=== PATIENT | female | born 1950 | race Caucasian/White ===

== ENCOUNTER 2016-07-18 16:34 | Outpatient (CLI) ==
--- NOTE | 2016-07-18 17:08 | DI ---
EXAM: Chest two views HISTORY: Smoker COMPARISON: 04/18/2010 TECHNIQUE: Two views of the chest were performed FINDINGS: The lungs are clear. There is no pleural effusion or pneumothorax. The heart is normal in size. The mediastinal contour is normal. There are no acute abnormalities of the bones. IMPRESSION: No acute cardiopulmonary process.
== END 2016-07-18 16:35 | disposition home or self-care (01) ==
LOC: RAD 16:34
PROVIDERS: ATTEND Internal Medicine
DX: F17.210 Nicotine dependence, cigarettes, uncomplicated (principal)

== ENCOUNTER 2016-09-26 15:06 | Emergency (ER) ==
[2016-09-26 15:13] VITALS: BP 109/63; TEMP 98.5; BMI 25.0
--- NOTE | 2016-09-26 15:25 | ED.PDOC ---
General ED Provider: Dr. CHRISTOPHER MONK JR Chief Complaint: Abdominal Pain Stated Complaint: onset epigastric pain that radiates to ruq--developed diarrhea -unable to eat/drink--causes pain--thinks might be gallbladder[ End ]ABDOMINAL 98.5 81 20 98% 109/63 03/19. Time Seen by Physician: 15:21 Mode of Arrival: Walk-In Information Source: Patient Exam Limitations: No limitations Primary Care Provider: GERMAN STEVENS Nursing and Triage Documentation Reviewed and Agree: No Review of Systems - Review Of Systems Constitutional: Reports: Chills, Malaise Eyes: Reports: No symptoms Ears, Nose, Mouth, Throat: Reports: No symptoms Respiratory: Reports: No symptoms Cardiac: Reports: No symptoms GI: Reports: Abdominal pain (SH[place] STABINNG ), Diarrhea, Nausea, Poor appetite ( DIARRHEA ANOREXIA), Vomiting : Reports: No symptoms Musculoskeletal: Reports: No symptoms Skin: Reports: No symptoms Neurological: Reports: No symptoms Endocrine: Reports: No symptoms Hematologic/Lymphatic: Reports: No symptoms All Other Systems: Other Past Medical History - Past Medical History Endocrine: Reports: None Cardiovascular: Reports: None Respiratory: Reports: None Hematological: Reports: None Gastrointestinal: Reports: Diverticulitis Genitourinary: Reports: None Neuro/Psych: Reports: None Musculoskeletal: Reports: None Cancer: Reports: None Last Menstrual Period: hysterectomy - Surgical History General Surgical History: Reports: Hysterectomy, Orthopedic - Family History Family History: Reports: Unknown - Social History Smoking Status: Current every day smoker, Heavy tobacco smoker Hx Substance Use: No Alcohol Screening: Occasionally Physical Exam - Physical Exam Appearance: Ill-appearing, Thin Ill-appearing: Moderate Pain Distress: Moderate Eyes: VALARIE, EOMI, Conjunctiva clear ENT: Ears normal, Nose normal, Oropharynx normal Neck: Supple Respiratory: Airway patent, Breath sounds clear, Breath sounds equal, Respirations nonlabored Cardiovascular: RRR, Pulses normal, No rub, No murmur GI/: Soft, No masses, Tender, Bowel sounds hypoactive Musculoskeletal: Normal strength, ROM intact, No edema, No calf tenderness Skin: Warm, Dry, Normal color Neurological: Sensation intact, Motor intact, Reflexes intact, Cranial nerves intact, Alert, Oriented Psychiatric: Affect appropriate, Mood appropriate Interpretation - EKG Interpretation Time of EKG #1: 15:50 Rate: Normal Rhythm: Sinus Ectopy: None [place]: NL ST Segment: Normal Critical Care Note - Critical Care Note Total Time (mins): 0 Course - Course Hematology/Chemistry: 09/26/16 15:35 09/26/16 15:35 Orders, Labs, Meds: Lab Review 09/26/16 15:35 WBC 6.91 RBC 4.67 Hgb 13.6 Hct 40.4 MCV 86.5 MCH 29.1 MCHC 33.7 RDW Coeff of Dilcia 13.5 Plt Count 214 Immature Gran % (Auto) 0.3 Neut % (Auto) 76.2 Lymph % (Auto) 17.2 Page % (Auto) 4.8 Eos % (Auto) 1.2 Baso % (Auto) 0.3 Immature Gran # (Auto) 0.0 Neut # 5.3 Lymph # 1.2 Page # 0.3 L Eos # 0.1 Baso # 0.0 Sodium 140 Potassium 3.8 Chloride 107 Carbon Dioxide 25 Anion Gap 11.8 BUN 10 Creatinine 0.72 Estimated GFR (MDRD) 81.00 BUN/Creatinine Ratio 13.88 Glucose 86 Calcium 8.4 Total Bilirubin 0.46 AST 12 L ALT 12 Alkaline Phosphatase 51 L Total Protein 6.4 Albumin 3.5 Globulin 2.9 Albumin/Globulin Ratio 1.21 Amylase 53 Lipase 25 Procalcitonin < 0.05 H. pylori IgG Antibody Negative Orders Category Date Time Status EKG-(ED ONLY) Stat CARDIO 09/26/16 15:28 Completed NPO REMINDER: IMAGING ONCE CARE 09/26/16 15:27 Completed ED IV/MEDIPORT/POWERPORT .ONCE EMERGENCY 09/26/16 15:26 Active AMYLASE Stat LAB 09/26/16 15:35 Completed BLOOD CULTURE Stat LAB 09/26/16 15:35 Received CBC W/ AUTO DIFF Stat LAB 09/26/16 15:35 Completed COMPREHENSIVE METABOLIC PANEL Stat LAB 09/26/16 15:35 Completed H. PYLORI SCREEN Stat LAB 09/26/16 15:35 Completed LIPASE Stat LAB 09/26/16 15:35 Completed PROCALCITONIN Stat LAB 09/26/16 15:35 Completed URINALYSIS C & S IF INDICATED Stat LAB 09/26/16 17:25 Received 0.9 % Sodium Chloride [Saline Flush] MEDS 09/26/16 15:26 Active 1 syr IVF PRN PRN Morphine Sulfate [Morphine 4 mg/ml Syringe] MEDS 09/26/16 15:29 Discontinued 4 mg IVP ONCE STA Ondansetron HCl/Pf [Zofran 4 mg/2 ml] MEDS 09/26/16 15:29 Discontinued 4 mg IVP ONCE STA Sodium Chloride 0.9% [Sodium Chloride] 1,000 ml MEDS 09/26/16 15:27 Discontinued IV BOLUS CHEST, 1V AP ONLY Stat RADS 09/26/16 15:28 Completed U/S ABDOMEN, RT. UPPER QUAD Stat RADS 09/26/16 15:26 Completed Medications Generic Name Dose Route Start Last Admin Trade Name Freq PRN Reason Stop Dose Admin Sodium Chloride 1 syr 09/26/16 15:26 09/26/16 15:52 Saline Flush IVF 1 syr PRN PRN Administration To flush IV Discontinued Medications Generic Name Dose Route Start Last Admin Trade Name Freq PRN Reason Stop Dose Admin Sodium Chloride 1,000 mls @ 1,000 mls/hr 09/26/16 15:27 09/26/16 15:52 Sodium Chloride IV 09/26/16 16:26 500 mls/hr BOLUS STA Administration Morphine Sulfate 4 mg 09/26/16 15:29 09/26/16 16:19 Morphine 4 Mg/Ml Syringe IVP 09/26/16 15:30 4 mg ONCE STA Administration Ondansetron HCl 4 mg 09/26/16 15:29 09/26/16 16:17 Zofran 4 Mg/2 Ml IVP 09/26/16 15:30 4 mg ONCE STA Administration Vital Signs: Temp Pulse Resp BP Pulse Ox 09/26/16 15:07 98.5 F 81 20 109/63 98 Departure - Departure Time of Disposition: 18:09 Disposition: HOME SELF-CARE Discharge Problem: Gastroenteritis Instructions: Acute Nausea and Vomiting (ED), Gastroenteritis (ED) Condition: Good Pt referred to PMD for follow-up: Yes Additional Instructions: zofran for nausea peptobismol for loose stools return if fever over 101.0 if worse\clear liquids for 12 hours after emesis Prescriptions: Hydrocodone Bit/Acetaminophen [[place] 5-325] 1 - 2 tab PO Q6HR PRN #12 tablet PRN Reason: pain Ondansetron HCl [Zofran Tab] 4 mg PO QID PRN #12 tablet PRN Reason: Nausea / Vomiting Allergies/Adverse Reactions: Allergies No Known Allergies Allergy (Unverified 09/26/16 15:14) Home Medications: Ambulatory Orders Estradiol [Estrace] 1 mg PO DAILY 09/26/16 Hydrocodone Bit/Acetaminophen [[place] 5-325] 1 - 2 tab PO Q6HR PRN #12 tablet Ondansetron HCl [Zofran Tab] 4 mg PO QID PRN #12 tablet 09/26/16
[2016-09-26] MEDS ORDERED: SODIUM CHLORIDE 1,000 ML IV STA (15:27)
[2016-09-26] MEDS ORDERED: ZOFRAN 4 MG/2 ML IVP STA (15:29)
[2016-09-26] MEDS ORDERED: MORPHINE 4 MG/ML SYRINGE IVP STA (15:29)
[2016-09-26 15:45] LABS: BASOPHILS % (AUTO) 0.3 % (0.0-3.0); EOSINOPHILS # (AUTO) 0.1 K/ul (0.0-0.7); EOSINOPHILS % (AUTO) 1.2 % (0.0-7.0); HEMATOCRIT 40.4 % (37.0-47.0); HEMOGLOBIN 13.6 g/dl (12.0-16.0); IMMATURE GRANULOCYTE % (AUTO) 0.3 % (0.0-5.0); LYMPHOCYTES # (AUTO) 1.2 K/uL (0.60-3.4); LYMPHOCYTES % (AUTO) 17.2 (10.0-50.0); MEAN CORPUSCULAR HEMOGLOBIN 29.1 pg (27.0-31.0); MEAN CORPUSCULAR HGB CONC 33.7 (31.8-35.4); MEAN CORPUSCULAR VOLUME 86.5 fl (81.0-99.0); MONOCYTES # (AUTO) 0.3 K/uL (0.4-2.0); MONOCYTES % (AUTO) 4.8 (0-10); NEUTROPHILS # (AUTO) 5.3 K/ul (2.0-6.9); NEUTROPHILS % (AUTO) 76.2; PLATELET COUNT 214 10^3/uL (140-440); RED BLOOD COUNT 4.67 10^6/ul (4.20-5.40); WHITE BLOOD COUNT 6.91 K/ul (4.6-10.2)
[2016-09-26 15:56] LABS: H. PYLORI ANTIBODY NEGATIVE (NEGATIVE); H.PYLORI INTERNAL QC INTERNAL QC VALID
[2016-09-26 16:06] LABS: ALBUMIN 3.5 g/dL (3.4-5.0); ALBUMIN/GLOBULIN RATIO 1.21; ANION GAP 11.8; BILIRUBIN,TOTAL 0.46 mg/dL (0.00-1.20); BUN/CREATININE RATIO 13.88; CALCIUM 8.4 mg/dL (8.2-10.2); CREATININE 0.72 mg/dL (0.60-1.30); POTASSIUM 3.8 mmol/L (3.5-5.10); TOTAL PROTEIN 6.4 g/dL (5.8-8.1)
--- NOTE | 2016-09-26 16:45 | DI ---
EXAM: Chest one view, frontal view only. HISTORY: Chest pain. COMPARISON: 07/18/2016. FINDINGS: The heart size is normal. There is no pulmonary vascular congestion. The lungs are natividad r. No pleural effusion or pneumothorax is seen. No acute osseous abnormality is identified. Since the prior study, there has been no significant interval change. IMPRESSION: No acute cardiopulmonary process.
--- NOTE | 2016-09-26 16:49 | US ---
EXAM: Right upper quadrant abdominal ultrasound. History: Nausea and vomiting, right upper quadrant abdominal pain. Technique: Multiple sonographic images through the abdomen were obtained. Color duplex Doppler was used to interrogate vascular flow. Findings: Pancreas is not well visualized due to obscuration by bowel gas. No abdominal ascites. There is an tegrade flow within the main portal vein. The liver is not enlarged according to the sonographic measurement given. The liver is echogenic. No focal liver lesions identified sonographically. Limited visualization of the right kidney demons trates no evidence for hydronephrosis. No shadowing gallstones. Gallbladder wall is not thickened. Common bile duct measures 0.4 cm in caliber. Impression: Diffuse fatty infiltration of the liver. Examination is otherwise unremarkable.
[2016-09-26 18:15] LABS: ADD URINE MICROSCOPIC NO; BILIRUBIN,URINE Negative (NEGATIVE); KETONES,URINE Negative (NEGATIVE); LEUKOCYTE ESTERASE ,URINE Negative (NEGATIVE); NITRITE,URINE Negative (NEGATIVE); PH,URINE 5.5 (5-9); PROTEIN,URINE Negative (NEGATIVE); URINE, BLOOD Negative (NEGATIVE)
== END 2016-09-26 18:15 | disposition home or self-care (01) ==
LOC: ED 15:06
DX: K52.9 Noninfective gastroenteritis and colitis, unspecified (principal); F17.210 Nicotine dependence, cigarettes, uncomplicated
CPT/HCPCS: 36415; 80053; 81001; 82150; 83690; 84145; 85025; 86677; 87040; 93005; 93010; 96361; 96374; 96375; 99283

== ENCOUNTER 2017-12-23 13:08 | Outpatient (CLI) | END 2017-12-23 13:09 | disposition home or self-care (01) | LOC: RAD 13:08 | PROVIDERS: ATTEND Internal Medicine | DX: Z12.31 Encounter for screening mammogram for malignant neoplasm of breast (principal) | CPT/HCPCS: 77067 ==